=== PATIENT | male | born 1940 | race Caucasian/White ===

== ENCOUNTER → 2016-10-25 | Outpatient (CLI) | payer BC | LOC: BMCIMAGING 11:27 | PROVIDERS: ATTEND Family Medicine | DX: M79.645 Pain in left finger(s) (principal) ==

== ENCOUNTER → 2018-03-24 | Outpatient (CLI) | payer OTHER | LOC: BMCIMAGING 16:36 | PROVIDERS: ATTEND Internal Medicine Geriatric Medicine | DX: M19.071 Primary osteoarthritis, right ankle and foot (principal); M77.31 Calcaneal spur, right foot ==